=== PATIENT | male | born 1935 | race Caucasian/White ===

== ENCOUNTER 2017-12-12 07:03 | Emergency (ER) | payer MEDICARE, OTHER ==
[~2017-12-12] VITALS: Ht 170.2 cm; Wt 83.9 kg
[~2017-12-12 07:03] MED LIST: COUMADIN 2.5MG2.5 M1 PO; HYDROCODON-ACE1 EAC7 PO
[2017-12-12] MEDS ORDERED: PRINIVIL20 M1 PO (07:22)
[2017-12-12] MEDS ORDERED: NORVASC5 MG PO (07:22)
[2017-12-12] MEDS ORDERED: ASPIR 8181 MG PO (07:23)
[2017-12-12] MEDS ORDERED: CASODEX 50 MG T50 M1 PO (07:23)
[2017-12-12] MEDS ORDERED: [UNRECOGNIZED DRUG - OTHER] PO (07:24)
[2017-12-12] MEDS ORDERED: PROBIOTIC1 EAC1 PO (07:24)
[2017-12-12] MEDS ORDERED: ZOCOR20 MG PO (07:24)
[2017-12-12] MEDS ORDERED: FISH OIL + D31 EACH PO (07:24)
[2017-12-12] MEDS ORDERED: LOPERAMIDE 2 MG2 M1 PO (07:24)
[2017-12-12] MEDS ORDERED: FLOMAX0.4 MG PO (07:24)
[2017-12-12 07:44] LABS: ABSOLUTE BASOPHILS 0.1 thou/uL (0.0-0.2); ABSOLUTE EOSINOPHILS 0.4 thou/uL (0.0-0.7); ABSOLUTE LYMPHOCYTES 1.7 thou/uL (0.8-5.3); ABSOLUTE MONOCYTES 0.7 thou/uL (0.0-1.2); ABSOLUTE NEUTROPHILS 5.5 thou/uL (1.6-8.1); BASOPHILS 0.9 %; EOSINOPHILS 4.9 %; HEMATOCRIT 38.9 % (42.0-52.0); HEMOGLOBIN 13.2 gm/dL (14.0-18.0); LYMPHOCYTES 20.6 %; MCH 30.8 pg (26.0-34.0); MCHC 33.9 g/dL (28.0-37.0); MCV 90.7 fL (80.0-100.0); MONOCYTES 8.2 %; MPV 7.5 fl. (7.2-11.1); NUCLEATED RBCS 0 /100WBC; PLATELET COUNT* 192 thou/uL (150-400); POLYS 65.4 %; RBC 4.29 mil/uL (4.50-6.00); RDW-CV 14.4 % (10.5-14.5); WBC 8.5 thou/uL (4.0-11.0)
[2017-12-12 07:49] LABS: URINE BILIRUBIN NEGATIVE (Negative); URINE BLOOD 1+ (Negative); URINE CLARITY CLEAR; URINE COLOR YELLOW; URINE GLUCOSE-RANDOM NEGATIVE (Negative); URINE KETONES NEGATIVE (Negative); URINE LEUKOCYTES-REFLEX NEGATIVE (Negative); URINE NITRITE-REFLEX NEGATIVE (Negative); URINE PROTEIN 1+ (Negative); URINE UROBILINOGEN 0.2 E.U./dl (0.2-1.0)
[2017-12-12 07:52] LABS: INR 2.3; PROTIME 22.1 Seconds (9.20-11.50)
[2017-12-12 07:53] LABS: CALCIUM 9.3 mg/dL (8.5-10.1); CREATININE 2.2 mg/dL (0.6-1.3)
[2017-12-12 07:58] LABS: ALBUMIN 4.1 g/dL (3.4-5.0); TOTAL BILIRUBIN 0.6 mg/dL (<0.1-1.0); TOTAL PROTEIN 7.8 g/dL (6.4-8.2)
[2017-12-12 08:05] LABS: BACTERIA-REFLEX None Seen /HPF (None Seen); CASTS None Seen /LPF (None Seen); CRYSTALS None Seen /LPF (None Seen); MUCUS None Seen strn/LPF (None Seen); SQUAMOUS NONE SEEN /LPF (0-3); URINE RBC 0-2 Rare /HPF (0-2); URINE WBC-REFLEX 0-5 Rare /HPF (0-5)
[2017-12-12] MEDS ORDERED: NORCO 5-325 TA1 EACH PO (09:10)
[2017-12-12] MEDS ORDERED: VALIUM2 MG PO (09:10)
[2017-12-12 09:38] VITALS: BP 131/67
== END 2017-12-12 09:38 | disposition home or self-care (01) ==
LOC: M.ERS 07:03
PROVIDERS: Personal Emergency Response Attendant
DX: M62.830 Muscle spasm of back (principal); I10 Essential (primary) hypertension; I48.91 Unspecified atrial fibrillation; Z90.49 Acquired absence of other specified parts of digestive tract; Z85.048 Personal history of other malignant neoplasm of rectum, rectosigmoid junction, and anus

== ENCOUNTER 2019-05-09 12:04 | Emergency (ER) | payer MEDICARE, OTHER ==
[~2019-05-09] VITALS: Ht 167.6 cm; Wt 86.2 kg
[~2019-05-09 12:04] MED LIST changes: +ASPIR 8181 MG PO; +CASODEX 50 MG T50 M1 PO; +FISH OIL + D31 EACH PO; +FLOMAX0.4 MG PO; +LOPERAMIDE 2 MG2 M1 PO; +NORCO 5-325 TA1 EACH PO; +NORVASC5 MG PO; +PRINIVIL20 M1 PO; +PROBIOTIC1 EAC1 PO; +VALIUM2 MG PO; +ZOCOR20 MG PO; +[UNRECOGNIZED DRUG - OTHER] PO
[2019-05-09 13:33] LABS: ABSOLUTE BASOPHILS 0.2 thou/uL (0.0-0.2); ABSOLUTE EOSINOPHILS 0.3 thou/uL (0.0-0.7); ABSOLUTE LYMPHOCYTES 0.9 thou/uL (0.8-5.3); ABSOLUTE MONOCYTES 0.7 thou/uL (0.0-1.2); BASOPHILS 2.1 %; EOSINOPHILS 3.3 %; HEMATOCRIT 40.3 % (42.0-52.0); HEMOGLOBIN 13.7 gm/dL (14.0-18.0); LYMPHOCYTES 9.9 %; MCH 30.7 pg (26.0-34.0); MCHC 33.9 g/dL (28.0-37.0); MCV 90.5 fL (80.0-100.0); MONOCYTES 7.7 %; MPV 7.8 fl. (7.2-11.1); NUCLEATED RBCS 0 /100WBC; PLATELET COUNT* 191 thou/uL (150-400); RBC 4.46 mil/uL (4.50-6.00); RDW-CV 15.5 % (10.5-14.5); WBC 9.1 thou/uL (4.0-11.0)
[2019-05-09 13:44] LABS: CALCIUM 8.9 mg/dL (8.5-10.1); CREATININE 2.1 mg/dL (0.6-1.3); POTASSIUM 4.3 mmol/L (3.5-5.1)
[2019-05-09 13:48] LABS: ALBUMIN 3.5 g/dL (3.4-5.0); TOTAL BILIRUBIN 0.3 mg/dL (<0.1-1.0); TOTAL PROTEIN 6.9 g/dL (6.4-8.2)
[2019-05-09 14:50] LABS: URINE BILIRUBIN NEGATIVE (Negative); URINE BLOOD TRACE (Negative); URINE CLARITY CLEAR; URINE COLOR YELLOW; URINE GLUCOSE-RANDOM NEGATIVE (Negative); URINE KETONES NEGATIVE (Negative); URINE LEUKOCYTES-REFLEX NEGATIVE (Negative); URINE NITRITE-REFLEX NEGATIVE (Negative); URINE PROTEIN TRACE (Negative); URINE SPECIFIC GRAVITY 1.015 (1.005-1.030); URINE UROBILINOGEN 0.2 E.U./dl (0.2-1.0)
--- NOTE | 2019-05-09 15:18 | EKG ---
[place] [address] ELECTROCARDIOGRAM REPORT Name: CADEN RUTHERFORD Room: [facility]#: [id number] Admission: 05/09/19 Attend Phys: Discharge: Date of : 33 Report #: [id number] THIS REPORT FOR: //name// [facility] ED Test Date: 2019-05-09 Test Time: 12:36:37 Pat Name: CADEN RUTHERFORD Department: Room: Gender: [employer]er Furniture: : 1935 Requested By: Elsie Piedra Order Number: [id number] MD: [employer] Measurements Intervals [place] Rate: 61 P: 0 FL: 150 QRS: -83 QRSD: 200 T: 73 QT: 513 QTc: 517 Interpretive Statements Ventricular-paced rhythm No further analysis attempted due to paced rhythm No previous ECG available for comparison Electronically Signed On 05-09-2019 15:18:19 [employer]PER[employer] by [employer] [email or web address] <ELECTRONICALLY SIGNED> By: [employer] MD, [facility] 05/09/19 1518 1236 1236 [employer] MD, FACC /EPI
[2019-05-09 16:10] VITALS: BP 134/96
== END 2019-05-09 16:10 | disposition home or self-care (01) ==
LOC: M.ERS 12:04
PROVIDERS: Personal Emergency Response Attendant
DX: R55 Syncope and collapse (principal); I10 Essential (primary) hypertension; I48.91 Unspecified atrial fibrillation; Z90.49 Acquired absence of other specified parts of digestive tract; Z85.048 Personal history of other malignant neoplasm of rectum, rectosigmoid junction, and anus

== ENCOUNTER 2021-05-16 20:02 | Emergency (ER) | payer MEDICARE, OTHER ==
[~2021-05-16] VITALS: Ht 167.6 cm; Wt 86.2 kg
[2021-05-16 20:52] VITALS: BP 162/70
== END 2021-05-16 20:52 | disposition home or self-care (01) ==
LOC: M.ERS 20:02
DX: S61.200A Unspecified open wound of right index finger without damage to nail, initial encounter (principal); I10 Essential (primary) hypertension; I48.91 Unspecified atrial fibrillation; Z95.0 Presence of cardiac pacemaker; Z90.49 Acquired absence of other specified parts of digestive tract; Z90.5 Acquired absence of kidney; Z85.048 Personal history of other malignant neoplasm of rectum, rectosigmoid junction, and anus; Z79.01 Long term (current) use of anticoagulants; Z79.899 Other long term (current) drug therapy; W45.8XXA Other foreign body or object entering through skin, initial encounter; Y93.89 Activity, other specified; Y92.89 Other specified places as the place of occurrence of the external cause; Y99.8 Other external cause status